=== PATIENT | female | born 1950 | race Caucasian/White ===

== ENCOUNTER → 2017-01-04 | Outpatient (CLI) | payer BC ==
--- NOTE | 2017-01-05 13:16 | MAMMOGRAPHY REPORT ---
BILATERAL DIGITAL SCREENING MAMMOGRAM TOMOSYNTHESIS WITH CAD: 01/04/2017 CLINICAL HISTORY: Routine screening examination. TECHNIQUE: Breast tomosynthesis in addition to standard 2D mammography was performed. Current study was also evaluated with a Computer Aided Detection (CAD) system. COMPARISON: Comparison is made to exams dated: 12/31/2015 mammogram, 12/28/2014 mammogram, 10/26/2013 ma mmogram, 09/20/2012 mammogram, 09/17/2011 mammogram, and 09/11/2010 mammogram - [facility] enter. BREAST COMPOSITION: There are scattered areas of fibroglandular density in both breasts. FINDINGS: There are multiple bilateral circumscribed masses scattered throughout the breasts, which is a typically benign mammographic pattern. No suspicious spiculated or irregular mass, architectur al distortion or cluster of new, suspicious microcalcifications is seen. IMPRESSION: ACR BI-RADS CATEGORY 1: NEGATIVE There is no mammographic evidence of malignancy. A 1 year screening mammogram is recommended. The p atient will receive written notification of the results. Approximately 10% of breast cancers are not detected with mammography. A negative mammographic repor t should not delay biopsy if a clinically suggestive mass is present. Teresa Fletcher M.D. ay/:01/04/2017 21:43:00 Scholarship Counselor: Michelle HADLEY)(M), [facility] letter sent: Normal 1/2 BI-RADS Code: ACR BI-RADS Category 1: Negative
== END | disposition home or self-care (01) ==
LOC: C.MAMM 09:45
PROVIDERS: ATTEND Family Medicine
DX: Z12.31 Encounter for screening mammogram for malignant neoplasm of breast (principal)

== ENCOUNTER → 2018-01-05 | Outpatient (CLI) | payer OTHER, MEDICARE ==
--- NOTE | 2018-01-05 15:25 | MAMMOGRAPHY REPORT ---
BILATERAL DIGITAL SCREENING MAMMOGRAM TOMOSYNTHESIS WITH CAD: 01/05/2018 CLINICAL HISTORY: Routine screening. Patient has no complaints. TECHNIQUE: Breast tomosynthesis in addition to standard 2D mammography was performed. Current study was also evaluated with a Computer Aided Detection (CAD) system. COMPARISON: Comparison is made to exams dated: 01/04/2017 mammogram, 12/31/2015 mammogram, 12/28/2014 ma mmogram, 09/20/2012 mammogram, 09/17/2011 mammogram, and 09/11/2010 mammogram - [facility] nter. BREAST COMPOSITION: There are scattered areas of fibroglandular density in both breasts. FINDINGS: No suspicious masses, calcifications, or areas of architectural distortion are noted in ei ther breast. There has been no significant interval change compared to prior exams. Bilateral nodula rity and bilateral benign-appearing calcifications are not significantly changed compared to prior ex ams. IMPRESSION: ACR BI-RADS CATEGORY 2: BENIGN There is no mammographic evidence of malignancy. A 1 year screening mammogram is recommended. The pa tient will receive written notification of the results. Approximately 10% of breast cancers are not detected with mammography. A negative mammographic report should not delay biopsy if a clinically suggestive mass is present. Kesha Carrera M.D. ah/:01/05/2018 13:11:19 Auto Radio Mechanic: Evelia HADLEY)(M), [facility] letter sent: Normal 1/2 BI-RADS Code: ACR BI-RADS Category 2: Benign
== END | disposition home or self-care (01) ==
LOC: C.MAMM 09:22
PROVIDERS: ATTEND Family Medicine
DX: Z12.31 Encounter for screening mammogram for malignant neoplasm of breast (principal)

== ENCOUNTER 2022-12-08 08:10 | Observation (INO) ==
--- NOTE | 2022-11-06 14:45 | PAT Medication Instructions ---
Medication Instructions Date of Service November 06, 2022 Home Medications alprazolam 1 mg tablet 1 mg PO HS buspirone 10 mg tablet 10 mg PO TID famotidine 20 mg tablet 20 mg PO BID fluoxetine 40 mg capsule 40 mg PO QAM metoprolol succinate 25 mg tablet,extended release 24 hr 25 mg PO QAM Lactobacillus acidophilus 10 billion cell capsule (Probiotic) 10,000 mmu cells PO QAM ascorbic acid (vitamin C) 500 mg tablet (Vitamin C) 500 mg PO QAM biotin 2,500 mcg capsule 2,500 mcg PO QAM cholecalciferol (vitamin D3) 100 mcg (4,000 unit) capsule 4,000 unit PO QAM zinc acetate 25 mg (zinc) capsule 25 mg PO QAM STOP taking 2 weeks before surgery biotin 2,500 mcg capsule 2,500 mcg PO QAM DO NOT take the morning of surgery Lactobacillus acidophilus 10 billion cell capsule (Probiotic) 10,000 mmu cells PO QAM ascorbic acid (vitamin C) 500 mg tablet (Vitamin C) 500 mg PO QAM cholecalciferol (vitamin D3) 100 mcg (4,000 unit) capsule 4,000 unit PO QAM zinc acetate 25 mg (zinc) capsule 25 mg PO QAM Take morning of surgery With a small sip of water, OTHERWISE NOTHING TO EAT OR DRINK AFTER MIDNIGHT: buspirone 10 mg tablet 10 mg PO TID famotidine 20 mg tablet 20 mg PO BID fluoxetine 40 mg capsule 40 mg PO QAM metoprolol succinate 25 mg tablet,extended release 24 hr 25 mg PO QAM Take evening before surgery alprazolam 1 mg tablet 1 mg PO HS buspirone 10 mg tablet 10 mg PO TID famotidine 20 mg tablet 20 mg PO BID Other Notes If you have any questions please call us at [phone] or [phone] or [phone] or [phone]
--- NOTE | 2022-11-11 13:40 | Anesthesiology Consultation ---
Date of Service November 11, 2022 Assessment & Plan (1) Encounter for pre-operative examination: Chart Review Chart Review: Acceptable Risk for Surgery and Patient seen in Pre Admission Testing Pt currently scheduled as 23 hours observation. If surgeon decides to change patient to Same Day Joint, patient would be acceptable risk for TKA, pending patient is motivated, has good support and surgeon's office completes Same Day Joint Program preop requirements. Per PAT appt on 11/11/22, patient denies any recent travel or large group activities. Pt is vaccinated for Covid. Will leave to surgeon's discretion if preop Covid testing needed. Educated on importance of using Covid precautions one week prior to surgery Teaching & Discussion Pre-Anesthesia Teaching/Discussion Notes: Instructed NPO after midnight before surgery,except medications with 15 cc of water. Medication instructions provided according to the PAT guidelines. History Surgery Operation Date: 12/08/22 08:50 Proposed Procedures p Right Total Knee Arthroplasty - Som De Souza MD Height/Weight Height: 5 ft 3 in Weight: 86.3 kg Allergies Allergy/AdvReac Type Severity Reaction Status Date / Time Sulfa (Sulfonamide Allergy Severe Gastrointestinal Verified 11/11/22 13:42 Antibiotics) Upset sulfamethoxazole Allergy Severe Hives Verified 11/11/22 13:42 [From Bactrim] trimethoprim [From Bactrim] Allergy Severe Hives Verified 11/11/22 13:42 Medications Home Medications Medication Instructions Recorded Confirmed Last Taken alprazolam 1 mg tablet 1 mg PO HS 07/30/22 11/05/22 Unknown buspirone 10 mg tablet 10 mg PO TID 07/30/22 11/05/22 Unknown famotidine 20 mg tablet 20 mg PO BID 07/30/22 11/05/22 Unknown fluoxetine 40 mg capsule 40 mg PO QAM 07/30/22 11/05/22 Unknown metoprolol succinate 25 mg 25 mg PO QAM 07/30/22 11/05/22 Unknown tablet,extended release 24 hr Lactobacillus acidophilus 10 10,000 mmu cells PO QAM 11/05/22 11/05/22 Unknown billion cell capsule (Probiotic) ascorbic acid (vitamin C) 500 mg 500 mg PO QAM 11/05/22 11/05/22 Unknown tablet (Vitamin C) biotin 2,500 mcg capsule 2,500 mcg PO QAM 11/05/22 11/05/22 Unknown cholecalciferol (vitamin D3) 100 4,000 unit PO QAM 11/05/22 11/05/22 Unknown mcg (4,000 unit) capsule zinc acetate 25 mg (zinc) capsule 25 mg PO QAM 11/05/22 11/05/22 Unknown Past Medical History Medical History Anxiety Chronic sinusitis Chronic rhinitis/sinusitis Degenerative disc disease cervical Depression does have insomnia GERD (gastroesophageal reflux disease) Well controlled and stable Hiatal hernia History of COVID-10 March 2022 > not hospitalized - no current symptoms Hypertension Mixed conductive and sensorineural hearing loss of left ear with restricted hearing of right ear Thyroid goiter Stable x years Thyroid nodule Stable (has has biopsies)- x 30 years Tinnitus of left ear Constant Exercise / Class Metabolic Activity II 4-5 Yardwork/Stairs/Walk up hill (one flight of stairs- no chest pain or SOB ) Past Surgical History Surgical History History of adenoidectomy History of bilateral tubal ligation History of breast biopsy bilat, benign History of colonoscopy History of esophagogastroduodenoscopy (EGD) History of myringotomy left x4 History of tonsillectomy History of tooth extraction S/P thyroid biopsy benign Past Anesthesia History No Hx of Anesthesia Complications and No Family Hx of Anesthesia Complications History of PONV No Hx of PONV and No Hx of Motion Sickness Social History Smoking Status: Never smoker Do You Dip or Chew Tobacco: No Hx Alcohol Use: Yes Alcohol type: wine alcohol intake frequency: holidays/special occasions only Hx Substance Use: No substance use type: does not use Review of Systems Patient denies chest pain, shortness of breath, dyspnea on exertion, cough, wheezing, palpitations. No hx of seizures, stroke, OK, apnea/snoring. No hx of blood clots or blood tr ansfusions Physical Exam Vital Signs VITALS BP 131/84 P 65 TEMP 97.6 SP02 98% RESP 16 Constitutional no acute distress ENMT Mouth: no TMJ clicking Thyromental Distance: > or= 3.5 Finger Breadths (3.5) Mallampati Class: II Missing molar Top front teeth bridged Crowns to side teeth and molars Neck neck extension not limited Respiratory normal respiratory effort; no respiratory distress Auscultation: lungs clear to auscultation bilaterally; no wheezes Cardiovascular Rate/Rhythm: regular rate and regular rhythm Heart Sounds: no murmur Vessels: no carotid bruit Musculoskeletal Spine: no pain with cervical ROM Extremities: extremities normal to inspection Psychiatric Orientation: alert Lab Results Anesthesia Preop Results Results Anesthesia Widget: 2 WBC 7.21 K/ul (4.8-10.8) 11/11/22 Hgb 11.3 g/dl (12.0-16.0) L 11/11/22 Hct 35.6 % (37.0-47.0) L 11/11/22 Plt 300 K/uL (130-400) 11/11/22 Na 138 mmol/L (136-145) 11/11/22 K 3.8 mmol/L (3.5-5.1) 11/11/22 Cl 106 mmol/L (98-107) 11/11/22 CO2 25 mmol/L (21-32) 11/11/22 BUN 14 mg/dl (6-23) 11/11/22 Creat 0.98 mg/dl (0.6-1.2) 11/11/22 Glucose Level 89 mg/dl (70-99(Fasting)) 11/11/22 PT 11.2 Seconds (9.0-12.0) 11/11/22 PTT 26.7 Seconds (21.0-31.0) 11/11/22 INR 1.1 (0.9-1.1) 11/11/22 Blood Type O Positive 11/11/22 Antibody Screen NEGATIVE 11/11/22 Testing Electrocardiogram Date: 11/11/22 Findings: + NSR @ (65bpm ) Chest X-Ray Date: 11/11/22 Findings: + NAD COVID-19 Risk Screen Screening Information COVID-19 Screen Date: 11/11/22 Exposure 21 Days Family/Household +COVID Last 21 Days: No Exposure 10 Days Any COVID Exposure Last 10 Days: No Symptoms Last 10 Days Experienced COVID Sx Last 10 Days: No + COVID 0-90 Days COVID + in Last 0-90 Days: No Risk Plan COVID Risk Plan: No Risk Identified Patient Education COVID Preop Screening Education Complete: Yes
--- NOTE | 2022-12-04 18:15 | History and Physical Report ---
CHIEF COMPLAINT: Bilateral knee pain and discomfort, right side greater than left. HISTORY OF PRESENT ILLNESS: The patient is a 72-year-old female from [place], [place] who pr esents for surgical treatment of her right knee. She has got a long history of bilateral knee pain a nd describes it has gotten worse over time. She was being treated by Dr. Hawkins over the [facility] with various injections. The gel shots only helped her for a week or two. She has had steroid tonny ts last for about a month. She is pretty miserable other times. It is global pain. The more she is up on her knees, more they hurt. She would like to have her knees fixed. PAST MEDICAL HISTORY: 1. History of depression. 2. Hypertension. 3. Peptic ulcer disease. PAST SURGICAL HISTORY: Includes: 1. Tonsillectomy. 2. Tubal ligation. ALLERGIES: BACTRIM AND SULFA. CURRENT MEDICATIONS: Include: 1. Fluoxetine. 2. ____. 3. Buspirone. 4. Metoprolol. 5. Alprazolam. 6. Ipratropium. 7. Triamcinolone cream. SOCIAL HISTORY: A 72-year-old female. She is . Two children. Rare alcohol intake. Does no t smoke. FAMILY HISTORY: Significant for lung cancer, lymphoma. REVIEW OF SYSTEMS: Negative for diabetes. No chest pain or shortness of breath. No history of DVT or PE. No bleeding problems. PHYSICAL EXAMINATION: GENERAL: Shows a pleasant middle-aged female. Looks to be in reasonably good health. HEENT: Benign. NECK: Supple. No lymphadenopathy. LUNGS: Clear to auscultation. HEART: Has a regular rate and rhythm. ABDOMEN: Soft, nontender, nondistended. EXTREMITIES: Grossly neurovascularly intact except as follows. Examination of both knees revealed patient ambulates independently. She has got slight varus alignme nt to both knees. Examination of the right knee reveals varus alignment. Tender over the medial sherman nt line. Small knee effusion. Range of motion 5-125. No instability. Examination of the left knee reveals similar varus deformity. She is tender over the medial joint li ne. Small knee effusion. Range of motion 5-125. No pain with hip motion. X-RAYS: X-rays of both knees were reviewed. It shows advanced medial compartment arthritis. She sanchez s got complete loss of the medial joint space on both sides. She progressed significantly over the p ast 6 months. ASSESSMENT: A 72-year-old female with advanced medial compartment arthritis. Fairly similar in sanjeevmarya martinez. The right knee is bothering more than the left, and she would like to proceed with right knee replacement. PLAN: We are going to proceed with right knee replacement. Risks and benefits of this procedure wer e explained to the patient and include but not limited to DVT, PE, , infection, neurological inj ury, vascular injury, bleeding problem, pain, limited range of motion, stiffness, failure to relieve her symptoms, incomplete relief of symptoms, need for further surgery in the future, etc. The patien t understands and desires to proceed. Informed consent was obtained. As far as discharge plans, she is planning to be discharged to home using [facility]. Job ID: [id number]
[~2022-12-08 08:10] MED LIST: ACETAMINOPHEN 500 MG TAB PO SCH; BUPIVACAINE 0.25% PF 30 ML VIAL ONE; BUPIVACAINE 0.5 % 5 MG/1 ML PF 10ML VIAL ONE; BUPIVACAINE LIPOSOME/PF 266 MG, BUPIVACAINE/EPINEPHRINE 50 ML, SODIUM CHLORIDE 0.9% PF ... INFIL SCH; CeleBREX 200 MG CAP PO SCH; DEXAMETHASONE SOD INJ 4 MG/ML VIAL IV SCH; FAMOTIDINE 20 MG TAB PO SCH; LR 500ML BOLUS, THEN 15ML/HR IV SCH; LR 60ML/HR IV SCH; METOCLOPRAMIDE HCL 10 MG TABLET PO SCH; TRANEXAMIC ACID 1,000 MG **IV Intra-op IV SCH; ceFAZolin 2000MG 2,000 MG/15 ML SYR IV SCH
--- NOTE | 2022-12-08 08:39 | History & Physical Bridge Note ---
Date of Service December 08, 2022 History & Physical Bridge Note I have examined the patient, reviewed the History & Physical and in the interval since the performance of the History & Physical I have noted the following changes of clinical significance: no changes noted
[2022-12-08] MEDS ORDERED: fentaNYL citrate PF 100 MCG/2 ML VIAL IV PRN (09:54)
[2022-12-08] MEDS ORDERED: ATROPINE SULFATE 0.1 MG/ML 10ML SYR IV PRN (09:54)
[2022-12-08] MEDS ORDERED: ONDANSETRON INJ 2 MG/ML 2 ML VIAL IV PRN ×2 (09:54→15:02)
[2022-12-08] MEDS ORDERED: ePHEDrine sulfate 50 MG/ML AMP IV PRN (09:54)
[2022-12-08] MEDS ORDERED: KETAMINE 50 MG/5 ML SYRINGE ONE (10:16)
[2022-12-08] MEDS ORDERED: MIDAZOLAM HCL 1 MG/ML 2ML VIAL ONE (10:42)
[2022-12-08] MEDS ORDERED: BUPIVACAINE LIPOSOME 1.3% 266 MG/20 ML VIAL ONE (11:03)
[2022-12-08] MEDS ORDERED: SODIUM CHLORIDE 0.9% PF 50 ML VIAL ONE (11:03)
[2022-12-08] MEDS ORDERED: BUPIVACAINE/EPINEPHRINE 0.25% 1:200,000 30 ML VIAL ONE (11:04)
--- NOTE | 2022-12-08 13:06 | Operative Report ---
PG Post Operative Report Pre & Post Diagnosis Operation Date: 12/08/22 10:40 Pre-Op Diagnosis: Right Knee Degenerative Joint disease Post-Op Diagnosis: Right Knee Degenerative Joint disease I identified the patient and participated in the time-out.: Yes Procedure Operation Date: 12/08/22 10:40 Actual Procedures p Right Total Knee Arthroplasty(Right) - Som De Souza MD Surgeon Som De Souza MD Floor Assembler Juancho Olsen PA-C Estimated Blood Loss 50 Findings Consistent with Post-Op Diagnosis Operative findings revealed advanced right knee DJD. She had grade 4 [id number] disease in the medial and patellofemoral compartments with full- thickness cartilage loss. There was not significant eburnation of the bone. She did have moderate-sized joint effusion. Osteophytes primarily medially. Specimens Right knee sent for pathology Anesthesia Type Spinal MAC Complications none Disposition Accompanied Patient To Recovery: No Indications Patient is a 72-year-old female has had a several year history of increasing bilateral knee pain discomforts the right side bit worse than the left. She been through extensive conservative treatment which became less successful over time. She elected proceed with total knee arthroplasty. Description of Procedure Operative implants consist of: 1. Biomet Vanguard size 62.5 right posterior stabilized femoral component. 2. Biomet size 63 tibial tray. 3. 10 mm posterior stabilized polyethylene insert. 4. 28 x 8 all poly patella. The patient was taken the operating, identified, and placed on the operating table supine position. Contractors were appropriately padded. IV antibiotics were provided by anesthesia team. A spinal anesthetic had been implemented the holding room along with an abductor canal block. A Vail catheter was placed in sterile fashion. Right Satric was then placed in the right lower extremities then prepped and draped in usual sterile fashion. The right leg was elevated exsanguinated with use of an Esmarch and the tourniquet is placed at 300 mmHg. An anterior process of the right knee was then performed a longitudinal incision centered over the patella. Sharp dissection was through subcutaneous tissue down to the extensor mechanism. Medial parapatellar arthrotomy incision was made. Some subperiosteal dissection was carried out medially. The fat pad was dissected from the patella tendon. The lateral patellofemoral ligament was released. Patella subluxated laterally and the knee was flexed. The osteophytes taking distal femur. The ACL and PCL were then released from the distal femur and the tibia subluxated anteriorly. The external treatment Lymepak was then placed in the anterior face of the tibia and adjusted 14 mm medially. Proximal tibial cut was made to remove 2 to 3 mm of bone from the medial side. The tibia was then sized to a size 63. Attention drawn to the femur. The distal femur was entered with a sharp drill. Intramedullary canal was s uction. Right 5 degree valgus cutting guide was placed through the distal femoral cutting block was pinned in place. Distal femoral cut was made to take an additional 3 mm bone of the distal femur. The femur was then sized to a size 62.5. We did downsize this slightly. The AP cutting block was pinned parallel to the epicondylar axis which was 3 degrees of external rotation. The anterior cut, anterior chamfer, posterior cut, posterior chamfer cuts were made. The box cutting guide was placed and then just slightly laterally. The box cut was made. The knee was flexed. The remnants of the medial and lateral menisci were excised. The osteophytes were taken off the posterior aspect of the femur. A trial femoral component was placed. The tibial tray was pinned in maximum external rotation in the Dru standpoint to use great defect and proximal tibia for the tibial tray. The knee was then trialed with 10 mm insert fit most appropriately. Attention drawn the patella. The patella was cleaned of all soft tissues. Patella thickness measured 19 mm in thickness was cut down to 11. It was sized to a size 28 patella. The lug holes were drilled for the 28 patella. A lateral osteophyte was removed. Patella button was placed. Knee was taken through range of motion patella tracked nicely with no thumbs test. Attention drawn to placing the permanent components. All trial components were removed. Bone plug was placed in the distal femur limit blood loss. Double batch Palacos G cement was mixed. Biomet Vanguard size 62.5 right posterior stabilized femoral component, size 63 tibial tray, a 10 mm posterior stabilized polyethylene insert, and a 28 x 8 all-poly patella was then cemented in place. He was brought into full extension till cement hardened. Final symmetric was then performed. The pericapsular tissues were injected with a total of 100 cc of combination of 20 of Exparel, 30 cc normal saline, 50 cc of quarter percent Marcaine with epinephrine. Patient did receive 1 g tranexamic acid. The tourniquet was let down for a final tourniquet time of 52 minutes. Hemostasis assured with electrocautery. The extensor mechanism then closed with a combination of #1 PDS suture and #1 Vicryl suture in a [id number] fashion. The extensor mechanism checked found to be intact and the subcutaneous tissue was then closed with 2 Dexon suture in a buried int errupted fashion skin was closed skin dana. Leg was then cleaned and dried and a sterile dressing with Xeroform, 4 fours, sterile cast padding, Elder bandage were applied. Patient then transferred to the recovery room in stable condition. Patient tolerated procedure well and there were no complications. Juancho Weinberg, my physician general surgery physician assistant, was present for the entire procedure. His assistance was essential and required for appropriate patient positioning, prepping and draping, surgical exposure, performing the technical details of the operation, placement the implants, closure of the wound, and placement of the sterile bandage. I attest to the content of the Intraoperative Record and any orders documented therein. Any exceptions are noted below.
--- NOTE | 2022-12-08 13:50 | XRay Report ---
XR knee RT 1 or 2V routine HISTORY: 72 years-old Female Surgical Post Op right knee arthroplasty COMPARISON: Knee radiographs 08/09/2022 TECHNIQUE: 2 views of the right knee FINDINGS: Total joint arthroplasty with patellar resurfacing. Anterior midline skin dana with expected posto perative soft tissue swelling and deep tissue air. No acute fracture or malalignment. IMPRESSION: Total joint arthroplasty with expected postoperative changes. ACT 112: Negative or not required by law. The above report was generated using voice recognition software. It may contain grammatical, syntax o r spelling errors. Electronically signed by: Dilan Munguia M.D. 12/08/2022 1:49 PM
--- NOTE | 2022-12-08 14:42 | Anesthesiology Progress Note ---
Date of Service December 08, 2022 Anesthesia Post Procedure Vital Signs Vital Signs: Temp Pulse Pulse Resp BP Pulse Ox O2 Del Method 12/08/22 14:15 67 16 138/79 96 Room Air 12/08/22 14:00 59 L 16 154/72 H 97 Room Air 12/08/22 13:55 36.8 C 63 22 137/70 97 Room Air 12/08/22 13:45 65 16 141/65 H 94 Room Air 12/08/22 13:35 61 16 142/61 H 95 Room Air 12/08/22 13:25 66 18 129/66 96 Room Air 12/08/22 13:15 62 20 131/51 L 100 Oxymask 12/08/22 13:07 36.5 C 67 17 120/66 100 Oxymask 12/08/22 08:54 36.6 C 62 18 147/86 H 97 Room Air O2 Flow Rate 12/08/22 14:15 12/08/22 14:00 12/08/22 13:55 12/08/22 13:45 12/08/22 13:35 12/08/22 13:25 12/08/22 13:15 15 12/08/22 13:07 15 12/08/22 08:54 Transfer of Care Handoff Completed per policy Notes Mental Status: alert / awake / arousable and participated in evaluation Patient Amnestic to Procedure: Yes Nausea / Vomiting: adequately controlled Pain: adequately controlled Airway Patency, RR, SpO2: stable & adequate BP & HR: stable & adequate Hydration State: stable & adequate Neuraxial Anesthesia: was administered and sensory block is resolving Anesthetic Complications: no major complications apparent and Pt Satisfied with anesthetic care
[2022-12-08] MEDS ORDERED: HYDROmorphone INJ 0.5 MG/0.5 ML SYR IV PRN (15:02)
[2022-12-08] MEDS ORDERED: ALUMINUM/MAGNESIUM SUSP 30 ML UDC PO PRN (15:02)
[2022-12-08] MEDS ORDERED: METOCLOPRAMIDE HCL INJ 5 MG/ML 2 ML VIAL IV PRN (15:02)
[2022-12-08] MEDS ORDERED: bisacodyL 10 MG SUPP PR PRN (15:02)
[2022-12-08] MEDS ORDERED: NALOXONE HCL 0.4 MG/1 ML VIAL/CARP IV PRN (15:02)
[2022-12-08] MEDS ORDERED: oxyCODONE HCL IR 5 MG TAB (IMMEDIATE RELEASE) PO PRN (15:02)
[2022-12-08] MEDS ORDERED: MAGNESIUM HYDROXIDE SUSP 30 ML UDC PO PRN (15:02)
[2022-12-08] MEDS: ACETAMINOPHEN 500 MG TAB PO SCH ×2 (16:41→19:51)
[2022-12-08] MEDS: busPIRone 5 MG TAB PO SCH ×2 (17:13→19:50)
[2022-12-08] MEDS: SODIUM CHLORIDE 0.9% 1000ML 1,000 ML IV SCH (17:13)
[2022-12-08] MEDS: KETOROLAC TROMETHAMINE 15 MG/ML VIAL IV SCH ×2 (17:20→21:06)
[2022-12-08] MEDS ORDERED: TRANEXAMIC ACID / 0.7% NACL 1,000 MG/100 ML BAG IV SCH (19:00)
[2022-12-08] MEDS: ceFAZolin 2000MG 2,000 MG/15 ML SYR IV SCH (19:49)
[2022-12-08] MEDS: FAMOTIDINE 20 MG TAB PO SCH (19:52)
[2022-12-08] MEDS: ASPIRIN 81 MG ECTAB PO SCH (19:53)
[2022-12-08] MEDS: DOCUSATE SODIUM 100 MG CAP PO SCH (19:53)
[2022-12-08] MEDS ORDERED: ALPRAZolam 0.5 MG TABLET PO SCH (21:00)
[2022-12-08] MEDS ORDERED: SENNA 8.6 MG TAB PO SCH ×2 (21:00)
[2022-12-08] MEDS ORDERED: NON-FORMULARY MEDICATION (Amino Acids [Amino Acid] Capsule) PO SCH (21:00)
[2022-12-09] MEDS: ceFAZolin 2000MG 2,000 MG/15 ML SYR IV SCH (03:15)
[2022-12-09] MEDS: KETOROLAC TROMETHAMINE 15 MG/ML VIAL IV SCH ×3 (03:17→15:04)
[2022-12-09] MEDS: SODIUM CHLORIDE 0.9% 1000ML 1,000 ML IV SCH (03:17)
[2022-12-09 07:54] LABS: Hematocrit (blood only) 28.1 % (37.0-47.0); Mean Corpuscular Hemoglobin 25.3 pg (25.0-34.0); Mean Corpuscular Volume 78.9 fL (80.0-100.0); Platelet Count 280 K/uL (130-400); RDW Coefficient of Variation 15.5 % (11.5-14.5); RDW Standard Deviation 44.6 fL (36.4-46.3); Red Blood Count 3.56 M/uL (4.20-5.40); White Blood Count 13.78 K/ul (4.8-10.8)
[2022-12-09] MEDS ORDERED: dexAMETHasone 10 MG in SYRINGE 0 ML IV SCH (08:00)
[2022-12-09 08:10] LABS: BUN Creatinine Ratio 12.9 (10-20); Calcium 8.9 mg/dl (8.6-10.3); Creatinine Clr Calc Pharmacy 54.1 ml/min; Est GFR (African American) 65.3 ml/min; Est GFR (Non-African American) 56.4 ml/min; Potassium 3.7 mmol/L (3.5-5.1)
[2022-12-09] MEDS: ACETAMINOPHEN 500 MG TAB PO SCH ×2 (08:20→13:16)
[2022-12-09] MEDS: ASPIRIN 81 MG ECTAB PO SCH (08:21)
[2022-12-09] MEDS: FAMOTIDINE 20 MG TAB PO SCH (08:21)
[2022-12-09] MEDS: busPIRone 5 MG TAB PO SCH ×2 (08:21→13:15)
[2022-12-09] MEDS: DOCUSATE SODIUM 100 MG CAP PO SCH (08:21)
[2022-12-09] MEDS ORDERED: MULTIVITAMIN TAB PO SCH (09:00)
[2022-12-09] MEDS ORDERED: VITAMIN B COMPLEX TAB PO SCH (09:00)
[2022-12-09] MEDS ORDERED: FLUoxetine HCL 20 MG CAP PO SCH (09:00)
[2022-12-09] MEDS ORDERED: ADVANCED PROBIOTIC 1250 MG CAPSULE PO SCH (09:00)
[2022-12-09] MEDS ORDERED: CHOLECALCIFEROL 1,000 UNITS 25 MCG TAB PO SCH (09:00)
[2022-12-09] MEDS ORDERED: ASCORBIC ACID 500 MG TAB PO SCH (09:00)
[2022-12-09] MEDS ORDERED: METOPROLOL SUCC 25MG EXT REL TAB PO SCH (09:00)
[2022-12-09] MEDS ORDERED: ZINC SULFATE 220 MG CAPSULE PO SCH (09:00)
--- NOTE | 2022-12-09 15:16 | Progress Notes ---
DATE OF SERVICE: 12/09/2022 SUBJECTIVE: A 72-year-old female postoperative day 1 from a right knee replacement. She is doing pr jesse well. Pain is controlled. Therapy went well. No chest pain or shortness of breath. Not feeli ng dizzy or lightheaded. OBJECTIVE: VITAL SIGNS: Temperature 37.0. Vital signs are stable. GENERAL: Shows a pleasant middle-aged female. Sitting up in her bed and looks ready to go. LUNGS: Clear to auscultation. HEART: Has a regular rate and rhythm. ABDOMEN: Soft, nontender, nondistended. EXTREMITIES: Grossly neurovascularly intact except as follows. Examination of the right leg reveals dressing to be clean, dry and intact. She can dorsiflex and abigail ntarflex her foot appropriately. She can do a straight leg raise. LABS: Hemoglobin 9.0. Hematocrit 28.1. Electrolytes are stable. ASSESSMENT: A 72-year-old female postoperative day 1 from a right knee replacement, doing well. Rose n is controlled. She is neurologically intact. She is hoping to go home. She is anemic without symp toms. PLAN: 1. DVT prophylaxis includes thigh-high TEDs, SCDs, and aspirin twice a day. 2. PT, OT, weightbear as tolerated. Right total knee protocol. 3. Pain control, doing okay with current pain regimen. 4. Disposition: Plan to discharge to home with some home health later today. Job ID: [id number]
--- NOTE | 2022-12-14 13:15 | Discharge Summary ---
Date of Service December 14, 2022 Discharge Data Procedures Performed Operation Date: 12/08/22 10:40 Actual Procedures p Right Total Knee Arthroplasty(Right) - Som De Souza MD Hospital Course (1) Status post total right knee replacement: This is a 72 year old patient admitted on 12/08/22 and underwent total knee arthroplasty. She tolerated the procedure well and there were no complications. Transferred to the PACU post op and later to the orthopedic floor for further care. She was given ancef for antibiotic prophylaxis. She was also given JOSE MARTIN stockings, SCDs, and aspirin for DVT prophylaxis. Hemoglobin, hematocrit, and vital signs were monitored during her hospital stay and remained stable. Did not require any blood transfusions. There were no complications during her hospital stay. By post op day #1 the patient was tolerating a regular diet, pain was reasonably controlled with oral pain medicine, and she was participating in physical therapy. On post op day #1 the patient was discharged home and set up with home health care. She was given printed discharge instructions including prescriptions for extra strength tylenol, aspirin, ketorolac, cefadroxil, zofran, senokot, and oxycodone. Continue physical therapy, weight bearing as tolerated. Continue JOSE MARTIN stockings. Follow up approximately 2 weeks post op or sooner if there are problems or concerns. Coding Level of Care Code None Diagnoses Status post total right knee replacement Z96.651
== END 2022-12-09 15:34 | disposition home health service (06) ==
LOC: ASU 08:10 → PACUINP 08:10 → 3N 17:06

== ENCOUNTER 2024-05-03 10:22 | Observation (INO) ==
--- NOTE | 2024-03-29 12:14 | PAT Medication Instructions ---
Medication Instructions Date of Service March 29, 2024 Home Medications Medication Instructions Recorded amoxicillin 500 mg tablet 2,000 mg (4 x 500 mg) PO ONCE #4 06/14/23 tabs metoprolol succinate 25 mg tablet,extended release 24 hr 25 mg PO QAM ascorbic acid (vitamin C) 500 mg tablet (Vitamin C) 500 mg PO BID cholecalciferol (vitamin D3) 100 mcg (4,000 unit) capsule 4,000 unit PO QAM amoxicillin 500 mg tablet 2,000 mg (4 x 500 mg) PO ONCE Lactobacillus acidophilus and rhamnosus 15 billion cell capsule (Probiotic) 1 cap PO DAILY alprazolam 1 mg tablet 1 - 2 mg PO HS PRN Restless Leg(S) calcium 600 mg capsule 600 mg PO BID cyanocobalamin (vitamin B-12) 1,000 mcg/mL injection syringe 1,000 mcg MONTHLY famotidine 40 mg tablet 40 mg PO HS ferrous sulfate 325 mg (65 mg iron) tablet 325 mg PO BID vilazodone 40 mg tablet 40 mg PO QAM Continue as directed amoxicillin 500 mg tablet 2,000 mg (4 x 500 mg) PO ONCE DO NOT take the morning of surgery ascorbic acid (vitamin C) 500 mg tablet (Vitamin C) 500 mg PO BID cholecalciferol (vitamin D3) 100 mcg (4,000 unit) capsule 4,000 unit PO QAM Lactobacillus acidophilus and rhamnosus 15 billion cell capsule (Probiotic) 1 cap PO DAILY calcium 600 mg capsule 600 mg PO BID cyanocobalamin (vitamin B-12) 1,000 mcg/mL injection syringe 1,000 mcg MONTHLY ferrous sulfate 325 mg (65 mg iron) tablet 325 mg PO BID Take morning of surgery With a small sip of water, OTHERWISE NOTHING TO EAT OR DRINK AFTER MIDNIGHT: metoprolol succinate 25 mg tablet,extended release 24 hr 25 mg PO QAM vilazodone 40 mg tablet 40 mg PO QAM Take evening before surgery ascorbic acid (vitamin C) 500 mg tablet (Vitamin C) 500 mg PO BID alprazolam 1 mg tablet 1 - 2 mg PO HS PRN Restless Leg(S) (if needed) calcium 600 mg capsule 600 mg PO BID famotidine 40 mg tablet 40 mg PO HS ferrous sulfate 325 mg (65 mg iron) tablet 325 mg PO BID Other Notes If you have any questions please call us at [phone] or [phone] or [phone] or [phone]
--- NOTE | 2024-04-05 10:55 | Anesthesiology Consultation ---
Date of Service April 05, 2024 Assessment & Plan (1) Encounter for pre-operative examination: - Infectious disease screening: Per assessment on 04/05/24: No known recent infectious disease contacts or current infectious disease symptoms. - Outpatient joint pathway: Per OR booking comments, plan for outpatient joint program. Patient seen at [facility] 04/05/24. Patient is an acceptable candidate to proceed as planned outpatient joint pathway pending perioperative course. Surgeon's office arranging post-op home management. - S/P Right TKA (12/08/22): SAB + regional at [facility] - Patient acceptable risk for surgery pending upcoming PCP visit (Dr. Kaci Celaya/Bailey Florez, appt 04/21). Chart Review Chart Review: Patient seen in Pre Admission Testing Teaching & Discussion Pre-Anesthesia Teaching/Discussion Notes: Instructed NPO after midnight before surgery,except medications with 15 cc of water. Medication instructions provided according to the [facility] guidelines. History Surgery Operation Date: 05/03/24 10:40 Proposed Procedures p OP: Left Total Knee Arthroplasty - Som De Souza MD Height/Weight Height: 5 ft 3 in Weight: 82.9 kg Allergies Allergy/AdvReac Type Severity Reaction Status Date / Time venlafaxine [From Effexor] Allergy Severe Tachycardia, Verified 04/03/24 16:01 headache bupropion [From Wellbutrin] Allergy Intermediate Tendonitis Verified 04/03/24 16:01 ropinirole [From Requip] Allergy Intermediate Palpitation Verified 03/27/24 15:45 s sulfamethoxazole Allergy Intermediate Hives Verified 03/27/24 15:42 [From Bactrim] trazodone Allergy Intermediate Palpitation Verified 04/03/24 16:01 s trimethoprim [From Bactrim] Allergy Intermediate Hives Verified 03/27/24 15:42 doxepin AdvReac Intermediate Restlessnes Verified 04/03/24 16:01 s Sulfa (Sulfonamide AdvReac Intermediate Gastrointestinal Verified 04/03/24 16:01 Antibiotics) Upset zolpidem [From Ambien] AdvReac Intermediate "Wake up Verified 04/03/24 16:01 in middle of night and eat" Medications Home Medications Medication Instructions Recorded Confirmed Last Taken metoprolol succinate 25 mg 25 mg PO QAM 07/30/22 03/27/24 12/08/22 06:30 tablet,extended release 24 hr ascorbic acid (vitamin C) 500 mg 500 mg PO BID 11/05/22 03/27/24 12/06/22 08:00 tablet (Vitamin C) cholecalciferol (vitamin D3) 100 4,000 unit PO QAM 11/05/22 03/27/24 12/06/22 08:00 mcg (4,000 unit) capsule amoxicillin 500 mg tablet 2,000 mg (4 x 500 mg) PO ONCE #4 06/14/23 03/27/24 Unknown tabs Lactobacillus acidophilus and 1 cap PO DAILY 03/27/24 03/27/24 Unknown rhamnosus 15 billion cell capsule (Probiotic) alprazolam 1 mg tablet 1 - 2 mg PO HS PRN Restless Leg(S) 03/27/24 03/27/24 Unknown calcium 600 mg capsule 600 mg PO BID 03/27/24 03/27/24 Unknown cyanocobalamin (vitamin B-12) 1,000 mcg MONTHLY 03/27/24 03/27/24 Unknown 1,000 mcg/mL injection syringe famotidine 40 mg tablet 40 mg PO HS 03/27/24 03/27/24 Unknown ferrous sulfate 325 mg (65 mg 325 mg PO BID 03/27/24 03/27/24 Unknown iron) tablet vilazodone 40 mg tablet 40 mg PO QAM 03/27/24 03/27/24 Unknown Past Medical History Medical History (Updated 04/05/24 @ 11:22 by Rosemarie Thompson) Anemia Per patient, no definitive etiology found (s/p unremarkable EGD/colonoscopy) and she has since been stable with iron/B12 supplementation addition. PCP monitoring. Anxiety and depression Chronic kidney disease, stage 3a Chronic sinusitis Chronic rhinitis/sinusitis Degenerative arthritis of knee, bilateral GERD (gastroesophageal reflux disease) Hiatal hernia Hypertension Mixed conductive and sensorineural hearing loss of left ear with restricted hearing of right ear Per records Osteoarthritis Restless leg syndrome Thyroid goiter "Stable" x years Tinnitus of left ear Per records Exercise / Class Metabolic Activity II 4-5 Yardwork/Stairs/Walk up hill Past Surgical History Surgical History Family history of reaction to anesthesia Daughter > PONV History of bilateral tubal ligation History of breast biopsy B/L, benign History of colonoscopy History of esophagogastroduodenoscopy (EGD) History of myringotomy left x4 History of tonsillectomy and adenoidectomy History of tooth extraction History of total knee replacement Right TKA (12/08/22): SAB + regional at [facility] S/P thyroid biopsy benign Past Anesthesia History No Hx of Anesthesia Complications and No Family Hx of Anesthesia Complications (Daughter- PONV) History of PONV No Hx of PONV and No Hx of Motion Sickness Social History Smoking Status: Never smoker Do You Dip or Chew Tobacco: No Hx Alcohol Use: Yes Alcohol type: wine alcohol intake frequency: holidays/special occasions only Hx Substance Use: No substance use type: does not use Review of Systems Patient denies chest pain, shortness of breath, dyspnea on exertion, fever, chills, cough, wheezing, palpitations. Physical Exam Vital Signs BP 136/84 P 65 TEMP 98.0 SP02 98%RA RESP 18 Physical Full cervical extension range of motion. Full TMJ range of motion. TMD 3 finger breaths Mallampati Score III Dentition: missing right upper side, + bridge (upper front), + caps Lungs: clear throughout to auscultation Cardiac: regular rate and rhythm, no murmurs noted Spine: normal Carotid arteries: negative bruit Extremities: no LE edema Lab Results Anesthesia Preop Results Results Anesthesia Widget: WBC 6.77 K/ul (4.8-10.8) 04/05/24 Hgb 15.5 g/dl (12.0-16.0) 04/05/24 Hct 45.9 % (37.0-47.0) 04/05/24 Plt 252 K/uL (130-400) 04/05/24 Na 142 mmol/L (136-145) 04/05/24 K 4.2 mmol/L (3.5-5.1) 04/05/24 Cl 106 mmol/L (98-107) 04/05/24 CO2 30 mmol/L (21-32) 04/05/24 BUN 10 mg/dl (6-23) 04/05/24 Creat 1.03 mg/dl (0.6-1.2) 04/05/24 Glucose Level 77 mg/dl (70-99(Fasting)) 04/05/24 PT 11.0 Seconds (9.0-12.0) 04/05/24 PTT 28 Seconds (21-31) 04/05/24 INR 1.0 (0.9-1.1) 04/05/24 Blood Type O Positive 04/05/24 Antibody Screen NEGATIVE 04/05/24 Testing Electrocardiogram Date: 04/05/24 NSR at 64bpm. NS STA. No significant change compared to 11/11/2022 per substance abuse clinician comparison. Chest X-Ray Date: 04/05/24 FINDINGS: Lung volumes are normal. Lungs are clear. There is no pneumothorax or pleural effusion. Cardiac size is normal. Moderate sized hiatal hernia is again noted. There is no evidence for pulmonary edema. IMPRESSION: No acute cardiopulmonary findings.
--- NOTE | 2024-04-29 11:22 | History & Physical Report ---
Date of Service April 29, 2024 Assessment & Plan (1) Left knee DJD: 73-year-old female now 15 months out from right knee replacement with persistent left knee pain and advanced arthritis. She is failed conservative measures. She would like to proceed with left knee replacement. She was actually scheduled about a year ago but had to cancel due to anemia. Send this is been corrected. She like to have her left knee fixed. Plan: Right taken the operating do a left total knee replacement for the risks Mente this procedure explained the patient include but not limited to a DVT PE infection neurological injury vascular bleeding palm pain limb range of motion this is fairly her symptoms incomplete relief of symptoms excetra. Patient understands and desires to proceed informed consent is obtained. She will need to take her metoprolol in the morning with a sip of water. She is planned to be discharged to home using [facility]. We use aspirin for DVT prophylaxis. (2) Status post right knee replacement: History of Present Illness Chief Complaint: . Persistent left knee pain discomfort. Primary Care Provider: Kaci Celaya MD . The patient is a 73-year-old female who presents for surgical fever left knee patient had a long history of knee problems had a right knee replaced about 15 months ago. She is doing well from this. She was actually scheduled to have left knee replaced shortly thereafter but she was pretty anemic. She had extensive workup. She is now cleared for surgery. She continues to be bothered by left knee pain. She been through extensive conservative treatment provided in the [facility] area in the past. She would like to proceed with left knee replacement. Allergies Allergy/AdvReac Type Severity Reaction Status Date / Time venlafaxine [From Effexor] Allergy Severe Tachycardia, Verified 04/03/24 16:01 headache bupropion [From Wellbutrin] Allergy Intermediate Tendonitis Verified 04/03/24 16:01 ropinirole [From Requip] Allergy Intermediate Palpitation Verified 03/27/24 15:45 s sulfamethoxazole Allergy Intermediate Hives Verified 03/27/24 15:42 [From Bactrim] trazodone Allergy Intermediate Palpitation Verified 04/03/24 16:01 s trimethoprim [From Bactrim] Allergy Intermediate Hives Verified 03/27/24 15:42 doxepin AdvReac Intermediate Restlessnes Verified 04/03/24 16:01 s Sulfa (Sulfonamide AdvReac Intermediate Gastrointestinal Verified 04/03/24 16:01 Antibiotics) Upset zolpidem [From Ambien] AdvReac Intermediate "Wake up Verified 04/03/24 16:01 in middle of night and eat" Home Medications Medication Instructions Recorded Confirmed Type metoprolol succinate 25 mg 25 mg PO QAM 07/30/22 03/27/24 History tablet,extended release 24 hr ascorbic acid (vitamin C) 500 mg 500 mg PO BID 11/05/22 03/27/24 History tablet (Vitamin C) cholecalciferol (vitamin D3) 100 4,000 unit PO QAM 11/05/22 03/27/24 History mcg (4,000 unit) capsule amoxicillin 500 mg tablet 2,000 mg (4 x 500 mg) PO ONCE #4 06/14/23 03/27/24 Rx tabs Lactobacillus acidophilus and 1 cap PO DAILY 03/27/24 03/27/24 History rhamnosus 15 billion cell capsule (Probiotic) alprazolam 1 mg tablet 1 - 2 mg PO HS PRN Restless Leg(S) 03/27/24 03/27/24 History calcium 600 mg capsule 600 mg PO BID 03/27/24 03/27/24 History cyanocobalamin (vitamin B-12) 1,000 mcg MONTHLY 03/27/24 03/27/24 History 1,000 mcg/mL injection syringe famotidine 40 mg tablet 40 mg PO HS 03/27/24 03/27/24 History ferrous sulfate 325 mg (65 mg 325 mg PO BID 03/27/24 03/27/24 History iron) tablet vilazodone 40 mg tablet 40 mg PO QAM 03/27/24 03/27/24 History Past Med/Surg History Problem List (Updated 04/29/24 @ 11:20 by Som De Souza MD) Status post right knee replacement Left knee DJD Encounter for pre-operative examination Medical History Mixed conductive and sensorineural hearing loss of left ear with restricted hearing of right ear Per records Tinnitus of left ear Per records Degenerative arthritis of knee, bilateral Osteoarthritis Chronic kidney disease, stage 3a Anemia Per patient, no definitive etiology found (s/p unremarkable EGD/colonoscopy) and she has since been stable with iron/B12 supplementation addition. PCP monitoring. Anxiety and depression Restless leg syndrome GERD (gastroesophageal reflux disease) Hiatal hernia Thyroid goiter "Stable" x years Chronic sinusitis Chronic rhinitis/sinusitis Hypertension Surgical History Family history of reaction to anesthesia Daughter > PONV History of total knee replacement Right TKA (12/08/22): SAB + regional at [facility] History of tonsillectomy and adenoidectomy History of breast biopsy B/L, benign History of esophagogastroduodenoscopy (EGD) History of colonoscopy History of bilateral tubal ligation S/P thyroid biopsy benign History of myringotomy left x4 History of tooth extraction Social History Smoking Status: Never smoker Second Hand Exposure: Yes (as a child); Do You Dip or Chew Tobacco: No; Hx Alcohol Use: Yes Alcohol type: wine Hx Substance Use: No Preferred Language: Kazakh Communication Ability: Effective 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 Physical Exam . Physical examination reveals a pleasant middle-age female but looks in good health. Examination of the left knee reveals varus alignment to her knee. She is tender with medial joint line. Small knee effusion. Range of motion about 5-1 20. No instability. No pain with hip motion but examination the right knee reveals well-healed incision. No real swelling. Range of motion 0-1 20. Good straight leg raise. Constitutional WD/WN, vitals as above Neck trachea midline, no thyromegaly Respiratory normal respiratory effort, lungs clear to auscultation Cardiovascular RRR, no murmur, no edema Gastrointestinal (Abdomen) normal bowel sounds, soft, nontender, no hepatosplenomegaly Results & Data Results & Data Laboratory Results . Diagnostic Findings . X-rays left knee reviewed. Shows advanced left knee medial compartment DJD. She has complete loss of medial joint space. Right knee replacement looks in a good position without problems. PG Care Time/CCT Total # of Minutes Spent Total Time Spent with Patient: Total time spent is greater than 50% in coordination of care (as documented) at patient's floor/unit and/or counseling patient: Coding Level of Care Code None Diagnoses Left knee DJD M17.12 Status post right knee replacement Z96.651
[~2024-05-03 10:22] MED LIST changes: -ACETAMINOPHEN 500 MG TAB PO SCH; -BUPIVACAINE 0.25% PF 30 ML VIAL ONE; -BUPIVACAINE LIPOSOME/PF 266 MG, BUPIVACAINE/EPINEPHRINE 50 ML, SODIUM CHLORIDE 0.9% PF ... INFIL SCH; -CeleBREX 200 MG CAP PO SCH; -DEXAMETHASONE SOD INJ 4 MG/ML VIAL IV SCH; -FAMOTIDINE 20 MG TAB PO SCH; -LR 500ML BOLUS, THEN 15ML/HR IV SCH; -LR 60ML/HR IV SCH; -METOCLOPRAMIDE HCL 10 MG TABLET PO SCH; +ROPIVACAINE 0.5% 5 MG/ML 30 ML VIAL ONE; -TRANEXAMIC ACID 1,000 MG **IV Intra-op IV SCH; -ceFAZolin 2000MG 2,000 MG/15 ML SYR IV SCH
[2024-05-03] MEDS: LR 500ML BOLUS, THEN 15ML/HR IV SCH (11:00)
--- NOTE | 2024-05-03 11:03 | History & Physical Bridge Note ---
Date of Service May 03, 2024 History & Physical Bridge Note I have examined the patient, reviewed the History & Physical and in the interval since the performance of the History & Physical I have noted the following changes of clinical significance: no changes noted
[2024-05-03] MEDS: LR 60ML/HR IV SCH (11:07)
[2024-05-03] MEDS: CeleBREX 200 MG CAP PO SCH (11:08)
[2024-05-03] MEDS: ACETAMINOPHEN 500 MG TAB PO SCH ×2 (11:09→20:16)
[2024-05-03] MEDS: METOCLOPRAMIDE HCL 10 MG TABLET PO SCH (11:10)
[2024-05-03] MEDS: FAMOTIDINE 20 MG TAB PO SCH (11:10)
[2024-05-03] MEDS: dexAMETHasone**PF** 10 MG/ML VIAL IV SCH (11:14)
[2024-05-03] MEDS: dexAMETHasone 4 MG TAB PO SCH (11:14)
[2024-05-03] MEDS: dexAMETHasone**PF** 10 MG/ML VIAL ONE (11:14)
[2024-05-03] MEDS ORDERED: Nursing to Pharmacy Communication SCH (11:15)
[2024-05-03] MEDS ORDERED: ePHEDrine sulfate 50 MG/ML AMP IV PRN (11:55)
[2024-05-03] MEDS ORDERED: ONDANSETRON INJ 2 MG/ML 2 ML VIAL IV PRN ×2 (11:55→15:44)
[2024-05-03] MEDS ORDERED: ATROPINE SULFATE 0.1 MG/ML 10ML SYR IV PRN (11:55)
[2024-05-03] MEDS ORDERED: fentaNYL citrate PF 100 MCG/2 ML VIAL IV PRN (11:55)
[2024-05-03] MEDS ORDERED: MIDAZOLAM HCL 1 MG/ML 2ML VIAL ONE (12:47)
[2024-05-03] MEDS: ceFAZolin 2000MG 2,000 MG/15 ML SYR IV SCH ×2 (13:02→20:06)
[2024-05-03] MEDS ORDERED: PROPOFOL IV EMULSION 10 MG/ML 20 ML VIAL IV ONE ×3 (13:12→14:07)
[2024-05-03] MEDS ORDERED: ePHEDrine sulfate 50 MG/5 ML SYR ONE (13:27)
[2024-05-03] MEDS: ROPIV 0.5% 246mg, Ketorolac 30mg, EPINEPHrine 0.5mg in NSS INFIL SCH (13:33)
[2024-05-03] MEDS: ORTHO JOINT ANESTHETIC ONE (13:34)
[2024-05-03] MEDS ORDERED: PHENYLEPHRINE 100MCG/ML 10ML SYR IV ONE (14:01)
[2024-05-03] MEDS: TRANEXAMIC ACID 1,000 MG **IV Intra-op IV SCH (14:03)
[2024-05-03] MEDS ORDERED: GLYCOPYRROLATE 0.2 MG/ML VIAL ONE (14:26)
--- NOTE | 2024-05-03 14:34 | Operative Report ---
PG Post Operative Report Pre & Post Diagnosis Operation Date: 05/03/24 12:30 Pre-Op Diagnosis: Left Knee Degenerative Joint Disease Post-Op Diagnosis: Left Knee Degenerative Joint Disease I identified the patient and participated in the time-out.: Yes Procedure Operation Date: 05/03/24 12:30 Actual Procedures p Left Total Knee Arthroplasty(Left) - Som De Souza MD Surgeon Som De Souza MD Tar Distillation Supervisor Juancho Weinberg PA-C Estimated Blood Loss 50 Findings Consistent with Post-Op Diagnosis Operative findings were advanced left knee DJD. She had pretty extensive grade 4 [id number] disease the medial compartment. Slight varus deformity to her knee. Osteophytes primarily medially. Small knee effusion. Specimens Left knee sent for pathology. Anesthesia Type Spinal MAC Complications none Disposition Accompanied Patient To Recovery: No Indications The patient is a 73-year-old female with a long history of progressive bilateral knee pain discomfort. She underwent a right knee replacement a little over a year ago and done well from this. She was actually found to have the left knee operated on but developed fairly significant anemia. She underwent medical optimization. She is not as active proceed with left knee replacement. She failed all conservative measures. Description of Procedure Operative implants consisted of: 1. Biomet Vanguard size 62.5 left posterior stabilized femoral component. 2. Biomet size 63 tibial tray. 3. 10 mm post stabilized polyethylene insert. 4. 28 x 8 all poly patella. The patient was taken the operating, identified, placed on the operating table in the supine position. All contact areas were appropriately padded. IV antibiotics provided by anesthesia team. A spinal anesthetic and adductor canal block had been provided in the holding area. A Vail catheter was placed in sterile fashion. A left thigh turn was then placed in the left lower extremities then prepped and draped in usual sterile fashion. The left leg was elevated and exsanguinated with use of an Esmarch and a turn was placed at 300 mmHg. An anterior approach to the left knee was then performed to longitudinal incision centered over the patella. Sharp dissection was got through subcutaneous tissue down the extensor mechanism. A medial parapatellar arthrotomy incision was made. Some subperiosteal dissection was carried out medially. The fat pad was resected from beneath the patella tendon. The lateral patellofemoral ligament was released. Patella subluxated laterally. Knee was flexed. The osteophytes taken off distal femur. The ACL and PCL were then released from distal femur the tibia subluxated anteriorly. The external tibial alignment jig was then placed on the anterior face the tibia and adjusted 14 mm medially. Proximal tibial cut was made remove about 1 to 2 mm of bone from the medial side. Tibia sized to a size 63. Attention drawn the femur. The distal femur examined the sharp drill. Intramedullary canal was suction. A left 5 degree valgus cutting guide was placed. Distal femoral cutting block was pinned in place. Distal femoral cut was made to take an additional 3 mm of bone off distal femur. The femur was then sized to a size 62.5. The 8 cutting block was pinned parallel to the epicondylar axis which was 4 degrees of external rotation. The anterior cut, anterior chamfer, posterior cut, posterior chamfer cuts were made. The box cutting guide was placed and just slight lateral box cut was made. The knee was flexed. The remnants of the medial and lateral menisci were excised. The osteophytes were taken off the posterior aspect the femur. The trial femoral component was placed. Tibial tray was pinned Randa external rotation and the drill and stem punch were used to create defect in proximal tibia for the tibial tray. The knee was then trialed and the 10 mm insert fit most appropriately. Attention drawn the patella. The patella was cleaned of all soft tissues. Patella thickness measured 20 mm in thickness was cut down to 13. Was sized to a size 28 patella. The locals were drilled for the 28 patella. The lateral osteophyte Fero-Folic was removed. Patella button was placed. Knee was taken through range of motion patella tracked nicely with no thumbs test. Attention drawn toward placing the permanent components. All trial components were removed. Bone plug was placed in the distal femur limit blood loss. Double batch Palacos G cement was mixed. A Biomet Vanguard size 62.5 left posterior stabilized femoral component, a 63 tibial tray, 10 mm posterior Byce polyethylene insert, and a 28 x 8 all poly patella then cemented in place. The knee was brought out into full extension till cement hardened. Final cement check was then performed. Pericapsular tissues were injected with 100 cc of Ortho mix. The patient did receive 1 g tranexamic acid. The tourniquet was then let down for final treatment time 48 minutes. Hemostasis assured with electrocautery. Extensor Meclomen closed with combination 1 PDS suture and 1 Vicryl suture in a [id number] fashion. Extensor Meclomen checked found to be intact and subcutaneous tissue then closed with 2 Dexon suture in a buried interrupted fashion skin was closed skin dana. Leg was then cleaned and dried and sterile dressing with Xeroform, 4 fours, sterile cast padding, Elder bandage were applied. Patient then transferred to the recovery room in stable condition. Patient tolerated procedure well and there were no complications. Juancho Weniberg, my physician senior care assistant, was present for the entire procedure. His assistance was essential and required for appropriate patient positioning, prepping and draping, surgical exposure, performing the technical details of the operation, placement the implants, closure of the wound, and placement of the sterile bandage. I attest to the content of the Intraoperative Record and any orders documented therein. Any exceptions are noted below.
--- NOTE | 2024-05-03 15:24 | Anesthesiology Progress Note ---
Date of Service May 03, 2024 Anesthesia Post Procedure Vital Signs Vital Signs: Temp Pulse Resp BP Pulse Ox O2 Del Method O2 Flow Rate 05/03/24 15:20 37.1 C 75 15 126/77 99 Room Air 05/03/24 15:10 81 20 129/74 100 Room Air 05/03/24 15:00 80 22 126/72 99 Oxymask 3 05/03/24 14:50 83 25 H 134/75 100 Oxymask 3 05/03/24 14:40 77 19 124/62 94 Oxymask 5 05/03/24 14:33 36.8 C 83 16 122/69 97 Oxymask 5 05/03/24 10:41 36.6 C 59 L 20 145/79 H 96 Room Air Pain Intensity Left Knee: Pain Intensity: 0 Transfer of Care Handoff Completed per policy Notes Mental Status: alert / awake / arousable and participated in evaluation Patient Amnestic to Procedure: Yes Nausea / Vomiting: adequately controlled Pain: adequately controlled Airway Patency, RR, SpO2: stable & adequate BP & HR: stable & adequate Hydration State: stable & adequate Anesthetic Complications: no major complications apparent and Pt Satisfied with anesthetic care
[2024-05-03] MEDS ORDERED: NALOXONE HCL 0.4 MG/1 ML VIAL/CARP IV PRN (15:44)
[2024-05-03] MEDS ORDERED: MAGNESIUM HYDROXIDE SUSP 30 ML UDC PO PRN (15:44)
[2024-05-03] MEDS ORDERED: HYDROmorphone INJ 0.5 MG/0.5 ML SYR IV PRN (15:44)
[2024-05-03] MEDS ORDERED: ALUMINUM/MAGNESIUM SUSP 30 ML UDC PO PRN (15:44)
[2024-05-03] MEDS ORDERED: ALPRAZolam 0.5 MG TABLET PO PRN (15:44)
[2024-05-03] MEDS ORDERED: METOCLOPRAMIDE HCL INJ 5 MG/ML 2 ML VIAL IV PRN (15:44)
[2024-05-03] MEDS ORDERED: NON-FORMULARY MEDICATION (Amoxicillin 500 mg tablet) PO SCH (15:44)
[2024-05-03] MEDS ORDERED: bisacodyL 10 MG SUPP PR PRN (15:44)
--- NOTE | 2024-05-03 15:46 | XRay Report ---
XR knee LT 1 or 2V routine CLINICAL HISTORY: Postoperative evaluation. COMPARISON: Left knee radiographs March 23, 2024. FINDINGS: Alignment of the total left knee arthroplasty is anatomic. There is no periprosthetic frac ture or unexpected radiopaque foreign body. There are skin dana. IMPRESSION: Expected findings following total left knee arthroplasty. ACT 112: Negative or not required by law. Electronically signed by: Jonathon Spear M.D. 05/03/2024 3:45 PM
--- NOTE | 2024-05-03 15:47 | Anesthesiology Progress Note ---
Date of Service May 03, 2024 Anesthesia Post Procedure Vital Signs Vital Signs: Temp Pulse Pulse Resp BP Pulse Ox O2 Del Method 05/03/24 15:45 98.1 F 70 18 157/81 H 98 Room Air 05/03/24 15:30 98.8 F 79 14 141/80 H 94 Room Air 05/03/24 15:20 98.8 F 75 15 126/77 99 Room Air 05/03/24 15:10 81 20 129/74 100 Room Air 05/03/24 15:00 80 22 126/72 99 Oxymask 05/03/24 14:50 83 25 H 134/75 100 Oxymask 05/03/24 14:40 77 19 124/62 94 Oxymask 05/03/24 14:33 98.2 F 83 16 122/69 97 Oxymask 05/03/24 10:41 97.9 F 59 L 20 145/79 H 96 Room Air O2 Flow Rate 05/03/24 15:45 05/03/24 15:30 05/03/24 15:20 05/03/24 15:10 05/03/24 15:00 3 05/03/24 14:50 3 05/03/24 14:40 5 05/03/24 14:33 5 05/03/24 10:41 Pain Intensity Left Knee: Pain Intensity: 0 Transfer of Care Handoff Completed per policy Notes Mental Status: alert / awake / arousable and participated in evaluation Patient Amnestic to Procedure: Yes Nausea / Vomiting: adequately controlled Pain: adequately controlled Airway Patency, RR, SpO2: stable & adequate BP & HR: stable & adequate Hydration State: stable & adequate Neuraxial Anesthesia: was administered and sensory block is resolving Anesthetic Complications: no major complications apparent and Pt Satisfied with anesthetic care
[2024-05-03] MEDS: SODIUM CHLORIDE 0.9% 1,000 ML IV SCH (17:07)
[2024-05-03] MEDS: KETOROLAC TROMETHAMINE 15 MG/ML VIAL IV SCH (17:41)
[2024-05-03] MEDS: oxyCODONE HCL IR 5 MG TAB (IMMEDIATE RELEASE) PO PRN (18:16)
[2024-05-03] MEDS: TRANEXAMIC ACID / 0.7% NACL 1,000 MG/100 ML BAG IV SCH (20:13)
[2024-05-03] MEDS: ASPIRIN 81 MG ECTAB PO SCH (20:17)
[2024-05-03] MEDS: ASCORBIC ACID 500 MG TAB PO SCH (20:17)
[2024-05-03] MEDS: FAMOTIDINE 40 MG TABLET PO SCH (20:18)
[2024-05-03] MEDS: CALCIUM CARBONATE 1250MG TAB PO SCH (20:18)
[2024-05-03] MEDS: DOCUSATE SODIUM 100 MG CAP PO SCH (20:18)
[2024-05-03] MEDS: SENNA 8.6 MG TAB PO SCH (20:18)
[2024-05-03] MEDS: FERROUS SULFATE 325 MG TAB PO SCH (20:18)
[2024-05-03] MEDS ORDERED: SENNA 8.6 MG TAB PO SCH (21:00)
--- NOTE | 2024-05-04 07:05 | Orthopedic Progress Note ---
Date of Service May 04, 2024 Assessment & Plan (1) Status post total left knee replacement: Seen and examined by Dr. De Souza Pain controlled. Dvt prophylaxis: teds, scd's, aspirin PT/OT wbat d/c planning: home with home health today after PT Subjective .73 year old patient POD #1 from left tka. Doing well. Has been out of bed. Pain controlled. No other complaints. Review of Systems All systems reviewed & are unremarkable except as noted in HPI & below. Physical Exam .alert and oriented. NAD Left leg: dressing intact. Able to dorsiflex and plantarflex. NVI Labs pending. Results & Data Results & Data Laboratory Results . Diagnostic Findings . PG Care Time/CCT Total # of Minutes Spent Total Time Spent with Patient: Total time spent is greater than 50% in coordination of care (as documented) at patient's floor/unit and/or counseling patient: Coding Level of Care Code 95128 Post Operative Follow-Up Diagnoses Status post total left knee replacement Z96.652
[2024-05-04 07:20] VITALS: BP 181/77; PULSE 59; RESP 16; TEMP 98.4; O2SAT 98
[2024-05-04] MEDS: dexAMETHasone 10 MG in SYRINGE 0 ML IV SCH (08:15)
[2024-05-04] MEDS: VILAZODONE HCL 1 EA PO SCH (08:17)
[2024-05-04] MEDS: ADVANCED PROBIOTIC 625 MG CAPSULE PO SCH (08:19)
[2024-05-04] MEDS: MULTIVITAMIN TAB PO SCH (08:19)
[2024-05-04] MEDS: CHOLECALCIFEROL 25 MCG (1000 UNITS) TAB PO SCH (08:20)
[2024-05-04] MEDS: METOPROLOL SUCC 25MG EXT REL TAB PO SCH (08:21)
[2024-05-04 08:48] LABS: Hematocrit (blood only) 39.7 % (37.0-47.0); Hemoglobin 13.8 g/dl (12.0-16.0); Mean Corpuscular Hemoglobin 31.4 pg (25.0-34.0); Mean Corpuscular Hgb Conc 34.8 g/dL (32.0-36.0); Mean Corpuscular Volume 90.2 fL (80.0-100.0); Mean Platelet Volume 10.6 fL (9.4-12.4); Platelet Count 249 K/uL (130-400); RDW Coefficient of Variation 13.2 % (11.5-14.5); RDW Standard Deviation 43.6 fL (36.4-46.3); White Blood Count 15.88 K/ul (4.8-10.8)
[2024-05-04 09:06] LABS: BUN Creatinine Ratio 10.3 (10-20); Calcium 9.6 mg/dl (8.6-10.3); Creatinine Clr Calc Pharmacy 50.2 ml/min; Est GFR (African American) 60.5 ml/min; Est GFR (Non-African American) 52.2 ml/min; Potassium 3.6 mmol/L (3.5-5.1)
--- NOTE | 2024-05-08 15:13 | Discharge Summary ---
Date of Service May 08, 2024 Discharge Data Procedures Performed Operation Date: 05/03/24 12:30 Actual Procedures p Left Total Knee Arthroplasty(Left) - Som De Sozua MD Hospital Course (1) Status post total left knee replacement: This is a 73 year old patient admitted on 05/03/24 and underwent total knee arthroplasty. She tolerated the procedure well and there were no complications. Transferred to the PACU post op and later to the orthopedic floor for further care. She was given ancef for antibiotic prophylaxis. She was also given JOSE MARTIN stockings, SCDs, and aspirin for DVT prophylaxis. Hemoglobin, hematocrit, and vital signs were monitored during her hospital stay and remained stable. Did not require any blood transfusions. There were no complications during her hospital stay. By post op day #1 the patient was tolerating a regular diet, pain was reasonably controlled with oral pain medicine, and she was participating in physical therapy. On post op day #1 the patient was discharged home and set up with home health care. She was given printed discharge instructions including prescriptions for extra strength tylenol, aspirin, cefadroxil, ketorolac, zofran, oxycodone, and senokot. Continue physical therapy, weight bearing as tolerated. Continue JOSE MARTIN stockings. Follow up approximately 2 weeks post op or sooner if there are problems or concerns. Coding Level of Care Code None Diagnoses Status post total left knee replacement Z96.652
== END 2024-05-04 11:35 | disposition home health service (06) ==
LOC: 3E 10:22 → ASU 10:22